=== PATIENT | female | born 1980 | race Caucasian/White ===

== ENCOUNTER 2020-01-20 17:07 | Emergency (ER) | payer BC, SELFPAY ==
[2020-01-20 17:13] VITALS: BP 124/62; PULSE 88; RESP 18; TEMP 36.3; O2SAT 97
[2020-01-20 18:08] LABS: Add Manual Diff / Slide Review NO; Basophils Absolute Auto 0 /uL (0-100); Basophils Percent Auto 0.8 % (0-2); Eosinophils Absolute Auto 100 /uL (0-450); Eosinophils Percent Auto 1.9 % (2-4); Hematocrit 38.9 % (36-46); Hemoglobin 13.2 g/dL (12.0-16.0); Lymphocytes Absolute Auto 1900 /uL (1100-4500); Lymphocytes Percent Auto 30.8 % (25-40); Mean Corpuscular HGB Conc 33.8 % (30-36); Mean Corpuscular Hemoglobin 28.4 PG (26-34); Mean Corpuscular Volume 83.9 fL (80-100); Monocytes Absolute Auto 400 /uL (0-900); Monocytes Percent Auto 6.7 % (3-14); Neutrophils Absolute Auto 3700 /uL (1500-7000); Neutrophils Percent Auto 59.8 % (50-75); Platelet Count 235 X10^3/uL (150-400); Red Blood Cell Count 4.64 X10^6/uL (4.0-5.2); Red Cell Distribution Width 13.5 % (11.6-14.8); White Blood Cell Count 6.2 X10^3/uL (4.5-11.0)
[2020-01-20 18:18] LABS: Alanine Aminotransferase 13 IU/L (<35); Albumin 4.2 g/dL (3.5-5.0); Albumin Globulin Ratio 1.6 (1.0-2.8); Alkaline Phosphatase 44 U/L (38-126); Aspartate Aminotransferase 20 IU/L (14-36); BUN Creatinine Ratio 21.8 (6-22); Bilirubin Total 0.2 mg/dL (0.2-1.3); Blood Urea Nitrogen 12 mg/dL (7-17); Calcium 8.7 mg/dL (8.4-10.2); Carbon Dioxide 28 mmol/L (22-32); Chloride 108 mmol/L (98-107); Estimated Glomerular Filt Rate > 60.0 mL/min (>60); Globulin 2.7 g/dL (1.7-4.1); Glucose 103 mg/dL (70-100); HEMOLYSIS < 15 (0-50); Potassium 4.6 mmol/L (3.4-5.1); Sodium 140 mmol/L (137-145); Total Protein 6.9 g/dL (6.3-8.2)
[2020-01-20 18:34] LABS: HCG Quantitative /Beta subunit 6.6 mIU/mL
[2020-01-20 19:08] LABS: Bacteria Urine None Seen
--- NOTE | 2020-01-20 19:29 | ED_ITS ---
HPI - Female Genitourinary <TAY Rodriguez - Last Filed: 01/20/20 20:16> General Chief complaint: Vaginal Bleeding Stated complaint: Thinks Miscarrige Time Seen by Provider: 01/20/20 17:21 Source: patient Mode of arrival: Ambulatory Limitations: no limitations History of Present Illness HPI Narrative: The patient is a 39-year-old female nonsmoker new to the area who presents with a chief complaint of bleeding she is having a miscarriage. She had her last menstrual period on non for had a 4 point positive test on 01/10. She complains of 6 days of increasing cramping and bleeding. She has progressed from very light pinkish discharge to menstrual like bleeding over the past few days. She denies any fevers nausea vomiting or diarrhea. She complains of menstrual like cramping. She has history of 2 healthy pregnancies. She is concerned that she is having a miscarriage today. She does note that she does not have anybody who is a primary care provider in the area she is new to the area. Review of Systems <TAY Rodriguez - Last Filed: 01/20/20 20:16> Review of Systems Narrative: GENERAL: Denies chills, fatigue, malaise, fever, sweats. HEENT: Denies sinus pain, ear pain, sore throat, difficulty swallowing, dizziness. RESPIRATORY: Denies dyspnea, cough, wheezing, hemoptysis, sputum. CARDIOVASCULAR: Denies chest pain, palpitations, orthopnea, edema, GASTROINTESTINAL: Denies nausea, vomiting, abdominal pain, diarrhea, cons tipation, melena. : See HPI MUSCULOSKELETAL: denies weakness, joint pain, or bony pain SKIN: Denies rash, skin lesions, or other NEUROLOGIC: Denies weakness, headache, numbness, change in speech, confusion, seizures, incoordination. PSYCHIATRIC: No concerning psychosocial issues. 12 point review of systems is negative except for those stated above Exam <TAY Rodriguez - Last Filed: 01/20/20 20:16> Narrative Exam Narrative: GENERAL: This is a well-nourished, well-developed patient, in no acute distress HEAD: Atraumatic. Normocephalic. No temporal or scalp tenderness. EYES: Pupils equal round and reactive. Extraocular motions intact. No scleral icterus. No injection or drainage. ENT: Nose without bleeding, purulent drainage or septal hematoma. Wearing a mask. Airway patent. NECK: Trachea midline. No JVD or lymphadenopathy. Supple, nontender, no meninge al signs. CARDIOVASCULAR: Regular rate and rhythm RESPIRATORY: Clear to auscultation. Breath sounds equal bilaterally. No wheezes, rales, or rhonchi. GASTROINTESTINAL: Abdomen soft, diffuse suprapubic tenderness to palpation, nondistended. No hepato-splenomegaly, or palpable masses. No guarding. Active bowel sounds all 4 quadrants EXTREMITIES: No clubbing, cyanosis, or edema. No joint tenderness, effusion, or edema noted. Using all extremities equally. BACK: Nontender without deformity or crepitance. No flank tenderness. NEURO: AOx3. SKIN: No rash or erythema on visible skin Initial Vital Signs Initial Vital Signs: Vital Signs Temperature 97.4 F L 01/20/20 17:13 Pulse Rate 88 01/20/20 17:13 Respiratory Rate 18 01/20/20 17:13 Blood Pressure 124/62 01/20/20 17:13 Pulse Oximetry 97 01/20/20 17:13 <Jose De Jesus George DO - Last Filed: 01/21/20 07:04> Initial Vital Signs Initial Vital Signs: Vital Signs Temperature 97.4 F L 01/20/20 17:13 Pulse Rate 88 01/20/20 17:13 Respiratory Rate 18 01/20/20 17:13 Blood Pressure 124/62 01/20/20 17:13 Pulse Oximetry 97 01/20/20 17:13 Scores <TAY Rodriguez - Last Filed: 01/20/20 20:16> GCS Katarina coma scale eye opening: Spontaneous Kat[place]ina coma scale verbal response: Orientated Kat[place]ina coma scale motor response: Obey commands [place] coma scale total score: 15 Course <TAY Rodriguez - Last Filed: 01/20/20 20:16> Orders Ordered: ED Orders 01/20/20 17:49 ABO RH Type Stat Complete Blood Count AUTO DIFF Stat Comprehensive Metabolic Panel Stat HCG Quantitative /Beta subunit Stat 01/20/20 19:07 Urine Microscopic Stat Vital Signs Vital signs: Vital Signs - 8 hr 01/20/20 17:13 Temperature 97.4 F L Pulse Rate 88 Respiratory Rate 18 Blood Pressure 124/62 Pulse Oximetry 97 <Jose De Jesus George DO - Last Filed: 01/21/20 07:04> Orders Ordered: ED Orders 01/20/20 17:49 ABO RH Type Stat Complete Blood Count AUTO DIFF Stat Comprehensive Metabolic Panel Stat HCG Quantitative /Beta subunit Stat 01/20/20 19:07 Urine Microscopic Stat Vital Signs Vital signs: Vital Signs - 8 hr 01/20/20 17:13 Temperature 97.4 F L Pulse Rate 88 Respiratory Rate 18 Blood Pressure 124/62 Pulse Oximetry 97 MDM - Female Genitourinary <MAGEN Rodriguez- - Last Filed: 01/20/20 20:16> Lab Data Attestation: I reviewed the patient's lab results. Result diagrams: 01/20/20 17:49 01/20/20 17:49 Labs: Lab Results 01/20/20 01/20/20 01/20/20 Range/Units 17:49 17:49 17:49 WBC 6.2 (4.5-11.0) X10^3/uL RBC 4.64 (4.0-5.2) X10^6/uL Hgb 13.2 (12.0-16.0) g/dL Hct 38.9 (36-46) % MCV 83.9 (80-100) fL MCH 28.4 (26-34) PG MCHC 33.8 (30-36) % RDW 13.5 (11.6-14.8) % Plt Count 235 (150-400) X10^3/uL Neut % (Auto) 59.8 (50-75) % Lymph % (Auto) 30.8 (25-40) % [place] % (Auto) 6.7 (3-14) % Eos % (Auto) 1.9 L (2-4) % Baso % (Auto) 0.8 (0-2) % Neut # (Auto) 3700 (3430-2946) /uL Lymph # (Auto) 1900 (1556-0119) /uL [place] # (Auto) 400 (0-900) /uL Eos # (Auto) 100 (0-450) /uL Baso # (Auto) 0 (0-100) /uL Sodium 140 (137-145) mmol/L Potassium 4.6 (3.4-5.1) mmol/L Chloride 108 H (98-107) mmol/L Carbon Dioxide 28 (22-32) mmol/L BUN 12 (7-17) mg/dL Creatinine 0.55 (0.52-1.04) mg/dL Estimated GFR > 60.0 (>60) mL/min BUN/Creatinine Ratio 21.8 (6-22) Glucose 103 H (70-100) mg/dL Calcium 8.7 (8.4-10.2) mg/dL Total Bilirubin 0.2 (0.2-1.3) mg/dL AST 20 (14-36) IU/L ALT 13 (<35) IU/L Alkaline Phosphatase 44 (38-126) U/L Total Protein 6.9 (6.3-8.2) g/dL Albumin 4.2 (3.5-5.0) g/dL Globulin 2.7 (1.7-4.1) g/dL Albumin/Globulin Ratio 1.6 (1.0-2.8) HCG, Quant 6.6 mIU/mL Urine RBC (0-5/HPF) Urine WBC (0-5/HPF) Ur Squamous Epith Cells (0-5/HPF) Urine Bacteria (None) Ur Culture Indicated? Blood Type A Positive 01/20/20 Range/Units 19:07 WBC (4.5-11.0) X10^3/uL RBC (4.0-5.2) X10^6/uL Hgb (12.0-16.0) g/dL Hct (36-46) % MCV (80-100) fL MCH (26-34) PG MCHC (30-36) % RDW (11.6-14.8) % Plt Count (150-400) X10^3/uL Neut % (Auto) (50-75) % Lymph % (Auto) (25-40) % [place] % (Auto) (3-14) % Eos % (Auto) (2-4) % Baso % (Auto) (0-2) % Neut # (Auto) (9578-9420) /uL Lymph # (Auto) (3632-0539) /uL [place] # (Auto) (0-900) /uL Eos # (Auto) (0-450) /uL Baso # (Auto) (0-100) /uL Sodium (137-145) mmol/L Potassium (3.4-5.1) mmol/L Chloride (98-107) mmol/L Carbon Dioxide (22-32) mmol/L BUN (7-17) mg/dL Creatinine (0.52-1.04) mg/dL Estimated GFR (>60) mL/min BUN/Creatinine Ratio (6-22) Glucose (70-100) mg/dL Calcium (8.4-10.2) mg/dL Total Bilirubin (0.2-1.3) mg/dL AST (14-36) IU/L ALT (<35) IU/L Alkaline Phosphatase (38-126) U/L Total Protein (6.3-8.2) g/dL Albumin (3.5-5.0) g/dL Globulin (1.7-4.1) g/dL Albumin/Globulin Ratio (1.0-2.8) HCG, Quant mIU/mL Urine RBC 0-1/hpf (0-5/HPF) Urine WBC 0-1/hpf (0-5/HPF) Ur Squamous Epith Cells 0-1 /hpf (0-5/HPF) Urine Bacteria None seen (None) Ur Culture Indicated? Cult not indicated Blood Type Point of Care Testing Test Results Positive Urine Dip Bedside Urine Glucose Negative Bedside Urine Bilirubin - Negative Bedside Urine Ketone - Negative Urine Specific [place] 1.020 Bedside Urine Occult Blood ++ Bedside Urine pH 6.5 Bedside Urine Protein - Negative Bedside Urine Urobilinogen - Negative Bedside Urine Nitrite - Negative Bedside Urine Leukocytes - Negative Esterase MDM Narrative Medical decision making narrative: The patient is a 39-year-old female who presents with a chief complaint of believing she is having a miscarriage. Her urine test is slightly positive, but her beta hCG is 6.6. Thus it is very unlikely that ultrasound illustrate anything. She is in no acute distress, but does not have anybody to follow up with. I spoke with Dr. Lay, on-call OBGYN who was kind enough to follow up with the patient. I discussed at length with the patient the importance of follow-up. Discussed at length coming back to ER for acute concerns such as bleeding through a pad an hour. Patient has no questions or concerns upon discharge and states understanding return precautions as well as follow-up care. <Jose De Jesus George DO - Last Filed: 01/21/20 07:04> Lab Data Labs: Lab Results 01/20/20 01/20/20 01/20/20 Range/Units 17:49 17:49 17:49 WBC 6.2 (4.5-11.0) X10^3/uL RBC 4.64 (4.0-5.2) X10^6/uL Hgb 13.2 (12.0-16.0) g/dL Hct 38.9 (36-46) % MCV 83.9 (80-100) fL MCH 28.4 (26-34) PG MCHC 33.8 (30-36) % RDW 13.5 (11.6-14.8) % Plt Count 235 (150-400) X10^3/uL Neut % (Auto) 59.8 (50-75) % Lymph % (Auto) 30.8 (25-40) % [place] % (Auto) 6.7 (3-14) % Eos % (Auto) 1.9 L (2-4) % Baso % (Auto) 0.8 (0-2) % Neut # (Auto) 3700 (4497-0862) /uL Lymph # (Auto) 1900 (6457-4189) /uL [place] # (Auto) 400 (0-900) /uL Eos # (Auto) 100 (0-450) /uL Baso # (Auto) 0 (0-100) /uL Sodium 140 (137-145) mmol/L Potassium 4.6 (3.4-5.1) mmol/L Chloride 108 H (98-107) mmol/L Carbon Dioxide 28 (22-32) mmol/L BUN 12 (7-17) mg/dL Creatinine 0.55 (0.52-1.04) mg/dL Estimated GFR > 60.0 (>60) mL/min BUN/Creatinine Ratio 21.8 (6-22) Glucose 103 H (70-100) mg/dL Calcium 8.7 (8.4-10.2) mg/dL Total Bilirubin 0.2 (0.2-1.3) mg/dL AST 20 (14-36) IU/L ALT 13 (<35) IU/L Alkaline Phosphatase 44 (38-126) U/L Total Protein 6.9 (6.3-8.2) g/dL Albumin 4.2 (3.5-5.0) g/dL Globulin 2.7 (1.7-4.1) g/dL Albumin/Globulin Ratio 1.6 (1.0-2.8) HCG, Quant 6.6 mIU/mL Urine RBC (0-5/HPF) Urine WBC (0-5/HPF) Ur Squamous Epith Cells (0-5/HPF) Urine Bacteria (None) Ur Culture Indicated? Blood Type A Positive 01/20/20 Range/Units 19:07 WBC (4.5-11.0) X10^3/uL RBC (4.0-5.2) X10^6/uL Hgb (12.0-16.0) g/dL Hct (36-46) % MCV (80-100) fL MCH (26-34) PG MCHC (30-36) % RDW (11.6-14.8) % Plt Count (150-400) X10^3/uL Neut % (Auto) (50-75) % Lymph % (Auto) (25-40) % [place] % (Auto) (3-14) % Eos % (Auto) (2-4) % Baso % (Auto) (0-2) % Neut # (Auto) (5469-9373) /uL Lymph # (Auto) (7588-5431) /uL [place] # (Auto) (0-900) /uL Eos # (Auto) (0-450) /uL Baso # (Auto) (0-100) /uL Sodium (137-145) mmol/L Potassium (3.4-5.1) mmol/L Chloride (98-107) mmol/L Carbon Dioxide (22-32) mmol/L BUN (7-17) mg/dL Creatinine (0.52-1.04) mg/dL Estimated GFR (>60) mL/min BUN/Creatinine Ratio (6-22) Glucose (70-100) mg/dL Calcium (8.4-10.2) mg/dL Total Bilirubin (0.2-1.3) mg/dL AST (14-36) IU/L ALT (<35) IU/L Alkaline Phosphatase (38-126) U/L Total Protein (6.3-8.2) g/dL Albumin (3.5-5.0) g/dL Globulin (1.7-4.1) g/dL Albumin/Globulin Ratio (1.0-2.8) HCG, Quant mIU/mL Urine RBC 0-1/hpf (0-5/HPF) Urine WBC 0-1/hpf (0-5/HPF) Ur Squamous Epith Cells 0-1 /hpf (0-5/HPF) Urine Bacteria None seen (None) Ur Culture Indicated? Cult not indicated Blood Type Point of Care Testing Test Results Positive Urine Dip Bedside Urine Glucose Negative Bedside Urine Bilirubin - Negative Bedside Urine Ketone - Negative Urine Specific [place] 1.020 Bedside Urine Occult Blood ++ Bedside Urine pH 6.5 Bedside Urine Protein - Negative Bedside Urine Urobilinogen - Negative Bedside Urine Nitrite - Negative Bedside Urine Leukocytes - Negative Esterase Discharge Plan Departure Patient Disposition: Home Clinical Impression: Miscarriage, threatened, early Discharge Date/Time: 01/20/20 20:31 Instructions: Threatened Miscarriage Activity Restrictions/Additional Instructions: Thank you for trusting us with your care today. As discussed, your hormone is very low. This information combined with your vaginal bleeding is very concerning for miscarriage. Dr. Lay's office should reach out to tomorrow to help arrange follow-up. I have included her contact information below. As discussed, please come back to the ER for any acute concerns such as bleeding through more than 1 pad per hour. Please come back to the emergency department for any acute concerns Referrals: Alicja Lay MD [Physician] - <Jose De Jesus George DO - Last Filed: 01/21/20 07:04> Cosign ED Attending Cosignature Attestation: Dr George Co-Sign Statement: I was available for consultation during this patient's emergency department visit. This chart is signed by myself for administrative purposes only. I did not have direct contact with this patient during this visit. They were seen indep endently by the APC.
[2020-01-20 19:42] LABS: Culture Indicated Urine Cult Not Indicated; RBC Urine 0-1/HPF (0-5/HPF); Squamous Epithelial Cell Urine 0-1 /HPF (0-5/HPF); WBC Urine 0-1/HPF (0-5/HPF)
[2020-01-20 20:29] VITALS: BP 118/66; PULSE 79; RESP 17; O2SAT 99
== END 2020-01-20 20:31 | disposition home or self-care (01) ==
PROVIDERS: Emergency Provider Nurse Practitioner Family
DX: O20.0 Threatened abortion (principal)
CPT/HCPCS: 36415; 80053; 81003; 81015; 81025; 84702; 85025; 86900; 86901; 99282; 99283

== ENCOUNTER → 2020-03-04 07:15 | Outpatient (CLI) | payer BC, SELFPAY ==
[2020-03-04 08:32] LABS: HCG Quantitative /Beta subunit 13742 mIU/mL
== END ==
PROVIDERS: Referring Provider Obstetrics & Gynecology; Visit Provider Obstetrics & Gynecology
DX: N91.2 Amenorrhea, unspecified (principal); Z87.59 Personal history of other complications of pregnancy, childbirth and the puerperium
CPT/HCPCS: 36415; 84702

== ENCOUNTER → 2020-03-06 07:13 | Outpatient (CLI) | payer BC, SELFPAY ==
[2020-03-06 09:37] LABS: HCG Quantitative /Beta subunit 18509 mIU/mL
== END ==
PROVIDERS: Referring Provider Obstetrics & Gynecology; Visit Provider Obstetrics & Gynecology
DX: Z32.01 Encounter for pregnancy test, result positive (principal)
CPT/HCPCS: 36415; 84702

== ENCOUNTER → 2020-03-24 11:27 | Outpatient (CLI) | payer BC, SELFPAY ==
[2020-03-24 16:15] LABS: Urine Chlamydia NOT DETECTED; Urine N gonorrhoeae NOT DETECTED
== END ==
PROVIDERS: Visit Provider Obstetrics & Gynecology
DX: Z34.81 Encounter for supervision of other normal pregnancy, first trimester (principal)
CPT/HCPCS: 87491; 87591

== ENCOUNTER → 2020-04-21 14:26 | Outpatient (CLI) | payer BC, SELFPAY ==
[2020-04-21 15:36] LABS: Add Manual Diff / Slide Review NO; Basophils Absolute Auto 0 /uL (0-100); Basophils Percent Auto 0.3 % (0-2); Eosinophils Absolute Auto 100 /uL (0-450); Eosinophils Percent Auto 1.1 % (2-4); Hematocrit 41.9 % (36-46); Hemoglobin 14.1 g/dL (12.0-16.0); Lymphocytes Absolute Auto 1400 /uL (1100-4500); Lymphocytes Percent Auto 19.9 % (25-40); Mean Corpuscular HGB Conc 33.6 % (30-36); Mean Corpuscular Hemoglobin 28.1 PG (26-34); Mean Corpuscular Volume 83.5 fL (80-100); Monocytes Absolute Auto 400 /uL (0-900); Monocytes Percent Auto 5.1 % (3-14); Neutrophils Absolute Auto 5200 /uL (1500-7000); Neutrophils Percent Auto 73.6 % (50-75); Platelet Count 224 X10^3/uL (150-400); Red Blood Cell Count 5.02 X10^6/uL (4.0-5.2); Red Cell Distribution Width 13.6 % (11.6-14.8); White Blood Cell Count 7.1 X10^3/uL (4.5-11.0)
[2020-04-21 15:44] LABS: Appearance Urine UA CLEAR; Bilirubin Urine UA NEGATIVE (NEGATIVE); Color Urine UA YELLOW; Glucose Urine UA NEGATIVE (Negative); Ketones Urine UA NEGATIVE (NEGATIVE); Leukocyte Esterase Urine UA NEGATIVE (NEGATIVE); Nitrite Urine UA NEGATIVE (Negative); Occult Blood Urine UA NEGATIVE (Negative); Protein Urine UA NEGATIVE (Negative); Specific Gravity Urine UA >=1.030 (1.000-1.035); Urobilinogen Urine UA 0.2 E.U./dL (0.2)
[2020-04-22 06:35] LABS: Varicella IgG Antibody 860 index (Immune >165)
[2020-04-22 10:07] LABS: RPR Screen Non Reactive (Non Reactive)
[2020-04-23 18:24] LABS: Hepatitis B Surface Antigen NEGATIVE s/c (NEGATIVE)
[2020-04-23 18:40] LABS: HIV 1 & 2 Ab/Ag 4th Gen Combo NEGATIVE (NEGATIVE); Hep C Virus Ab w/Reflex Quant NEGATIVE s/c (NEGATIVE)
== END ==
PROVIDERS: Referring Provider Obstetrics & Gynecology; Visit Provider Obstetrics & Gynecology
DX: O09.511 Supervision of elderly primigravida, first trimester (principal)
CPT/HCPCS: 36415; 80055; 81003; 81420; 86787; 86803; 86850; 86900; 86901; 87086; 87389

== ENCOUNTER → 2020-05-19 09:18 | Outpatient (CLI) | payer BC, SELFPAY ==
[2020-05-21 18:38] LABS: Gest Age on Col Date 16.3 weeks (.); Gestational Age Ultrasound (.); Insulin Dep Diabetes No (.); OSBR Risk 1IN 10000 (.); Results Report (.); Test Results *Screen Negative* (.)
== END ==
PROVIDERS: Referring Provider Obstetrics & Gynecology; Visit Provider Obstetrics & Gynecology
DX: Z34.82 Encounter for supervision of other normal pregnancy, second trimester (principal); Z3A.16 16 weeks gestation of pregnancy
CPT/HCPCS: 36415; 82105

== ENCOUNTER → 2020-06-16 14:25 | Outpatient (CLI) | payer BC, SELFPAY ==
--- NOTE | 2020-06-16 14:26 | DI.US.S_ITS ---
PROCEDURE: US OB >= 14 WEEKS FETUS INDICATIONS: ANATOMY OUTSIDE/PRIOR DATING DATA: Last menstrual period (LMP): 01/18/2020. LMP-based estimated date of delivery (CECILY): 10/24/2020 . First dating scan (date and location): 03/10/2020 . Estimated date of delivery (CECILY) from first dating scan: 11/02/2020 TECHNIQUE: Real-time scanning was performed of the fetus, with image documentation and biometric measurements. Endovaginal scanning: No COMPARISON: [facility], , OB >= 14 WEEKS FETUS, 04/21/2020, 13:53. FINDINGS: General: A single living intrauterine gestation is present. Presentation: Breech. Placenta: Placental position is anterior , without previa. Amniotic fluid index: 12.1 cm, normal range is 5-24 cm. heart rate: 147 beats per minute. Maternal cervical canal: 5.0 cm long. Normal lower limit is 2.5 cm. biometrics: Biparietal diameter: 20 weeks 3 days Head circumference: 20 weeks 1 day Abdominal circumference: 20 weeks Femur length: 20 weeks Estimated gestational age from initial scan: 20 weeks 1 day Composite gestational age from present scan: 20 weeks 3 days Estimated weight and percentile: 354 g; 63rd percentile Measurement variability for biometric dating: +/- 7 days from 14 weeks to 15 weeks 6 days gestation, +/- 10 days from 16 weeks to 21 weeks 6 days gestation, +/- 2 weeks from 22 weeks to 27 weeks 6 days gestation, +/- 3 weeks for 28 weeks gestation or later. weight reference: 4500 g or EFW >90/95% is considered macrosomia or large for gestational age. EFW <10% is small for gestational age. EFW 5% or less is considered intra-uterine growth restriction. Anatomic survey: Neuro: Ventricles are non-dilated at less than 10 mm. Cisterna magna is normal at 3-11 mm. Cerebellum is normal in size and morphology. Nuchal skin fold: Normal at less than 6 mm between 14-21 weeks gestational age. Face: Nose and lips, facial profile are normal. Spine: No evidence for spina bifida. Heart: 4-chambered heart is present, with normal ventricular outflow tracts. Diaphragm: Diaphragm is intact. Stomach: Left-sided stomach is present. Kidneys: No hydronephrosis. Normal is less than 5 mm in 2nd trimester, less than 7 mm in 3rd trimester. Cord: 3-vessel cord has orthotopic insertion. Bladder: Normal in size. Extremities: All 4 extremities identified. IMPRESSION: 1. Normal interval growth. 2. Normal anatomic survey. Dictated by: Alvaro Sexton [facility] Interpreted: Jose Mckeon MD on 06/16/2020 at 16:53 Approved by: Jose Mckeon M.D. on 06/16/2020 at 17:07
== END ==
PROVIDERS: Referring Provider Obstetrics & Gynecology; Visit Provider Obstetrics & Gynecology
DX: Z34.82 Encounter for supervision of other normal pregnancy, second trimester (principal); Z3A.20 20 weeks gestation of pregnancy
CPT/HCPCS: 76811

== ENCOUNTER → 2020-07-14 15:28 | Outpatient (CLI) | payer BC, SELFPAY ==
[2020-07-14 17:54] LABS: Hematocrit 36.9 % (36-46); Hemoglobin 12.4 g/dL (12.0-16.0)
[2020-07-14 17:58] LABS: GTT (PREG) 1 Hour PP 50gm Dose 158 mg/dL (76-139)
== END ==
PROVIDERS: Referring Provider Obstetrics & Gynecology; Visit Provider Obstetrics & Gynecology
DX: Z34.82 Encounter for supervision of other normal pregnancy, second trimester (principal); Z3A.26 26 weeks gestation of pregnancy
CPT/HCPCS: 36415; 82950; 85014; 85018

== ENCOUNTER → 2020-07-17 07:12 | Outpatient (CLI) | payer BC, SELFPAY ==
[2020-07-17 09:50] LABS: Glucose Fasting Gestational 83 mg/dL (76-95)
[2020-07-17 09:55] LABS: Glucose 1 Hour Gest 181 mg/dL (76-180)
[2020-07-17 10:46] LABS: Glucose Tol Interp,Gestational INTERPRETATION
[2020-07-17 11:51] LABS: Glucose 2 Hour Gest 151 mg/dL (76-155)
[2020-07-17 11:53] LABS: Glucose 3 Hour Gest 102 mg/dL (76-140)
== END ==
PROVIDERS: Referring Provider Obstetrics & Gynecology; Visit Provider Obstetrics & Gynecology
DX: R73.09 Other abnormal glucose (principal)
CPT/HCPCS: 36415; 82951; 82952

== ENCOUNTER → 2020-10-08 09:49 | Outpatient (CLI) | payer BC, SELFPAY ==
[2020-10-09 16:45] LABS: Strep Grp B PCR NEG for Grp B Strep
== END ==
PROVIDERS: Referring Provider Obstetrics & Gynecology; Visit Provider Obstetrics & Gynecology
DX: Z34.83 Encounter for supervision of other normal pregnancy, third trimester (principal); Z3A.36 36 weeks gestation of pregnancy
CPT/HCPCS: 87653

== ENCOUNTER → 2020-10-23 13:28 | Outpatient (CLI) | payer BC, SELFPAY ==
[2020-10-23 15:00] LABS: COVID19 -Nasal RAPID Negative (Negative)
== END ==
PROVIDERS: Visit Provider Obstetrics & Gynecology
DX: Z01.812 Encounter for preprocedural laboratory examination (principal); Z20.822 Contact with and (suspected) exposure to COVID-19
CPT/HCPCS: 87635

== ENCOUNTER 2020-10-26 07:10 | Inpatient (IN) | payer BC, SELFPAY ==
[2020-10-26] MEDS: LACTATED RINGERS 1,000 ML 100 ML IV ×3 (08:01→13:10)
[2020-10-26] MEDS: OXYTOCIN PREMIX 30 UNIT/500 ML PLAST..BAG IV (08:08)
[2020-10-26 08:14] LABS: Add Manual Diff / Slide Review NO; Basophils Absolute Auto 0 /uL (0-100); Basophils Percent Auto 0.4 % (0-2); Eosinophils Absolute Auto 100 /uL (0-450); Eosinophils Percent Auto 0.8 % (2-4); Hematocrit 38.4 % (36-46); Hemoglobin 12.8 g/dL (12.0-16.0); Lymphocytes Absolute Auto 1300 /uL (1100-4500); Lymphocytes Percent Auto 16.1 % (25-40); Mean Corpuscular HGB Conc 33.4 % (30-36); Mean Corpuscular Hemoglobin 26.9 PG (26-34); Mean Corpuscular Volume 80.6 fL (80-100); Monocytes Absolute Auto 400 /uL (0-900); Monocytes Percent Auto 5.3 % (3-14); Neutrophils Absolute Auto 6300 /uL (1500-7000); Neutrophils Percent Auto 77.4 % (50-75); Platelet Count 180 X10^3/uL (150-400); Red Blood Cell Count 4.77 X10^6/uL (4.0-5.2); Red Cell Distribution Width 14.9 % (11.6-14.8); White Blood Cell Count 8.1 X10^3/uL (4.5-11.0)
[2020-10-26] MEDS: FENT 2MCG/ML BUPIV 0.125% EPI 200 MCG/100 ML PLAST..BAG 12 MCG EPIDURAL (10:30)
[2020-10-26] MEDS: ePHEDrine 50 MG/ML VIAL 15 MG IV (11:11)
--- NOTE | 2020-10-26 11:18 | PM.AN.REGBLK ---
Regional Block Pre-procedure Procedure: Continuous Lumbar Epidural for L&D Attending OB provider: Alicja Lay PMH/ROS narrative: , h/o pre-E, none this . Hx: No personal or family history of anesthesia problems. PSH/Anesthesia history narrative: previous epidural without issue Exam narrative: MP1, RRR, CTAB ASA Class: II Labs: Hct 38.4 % (36-46) 10/26/20 08:00 Plt Count 180 X10^3/uL (150-400) 10/26/20 08:00 Medications: Current Medications Generic Name Dose Route Start Last Admin Trade Name Freq PRN Reason Stop Dose Admin Calcium Carbonate 1,000 mg 10/26/20 07:19 Calcium Carbonate 500 Mg Tab PO Q2HR PRN Dyspepsia Carboprost Tromethamine 250 mcg 10/26/20 07:19 Carboprost 250 Mcg/Ml Ampul IM Q90M PRN Bleeding Ephedrine Sulfate 15 mg 10/26/20 11:08 10/26/20 11:11 Ephedrine 50 Mg/Ml Vial IV 15 mg NOW PRN Administration Hypotension Fentanyl 50 mcg 10/26/20 07:19 Fentanyl 100 Mcg/2 Ml Inj IV Q1H PRN Pain, Moderate (4-6) Oxytocin/Lactated Ringer's 30 unit in 500 mls @ 200 mls/hr 10/26/20 07:19 Oxytocin Premix IV CONT PRN Bleeding Protocol Oxytocin/Lactated Ringer's 30 unit in 500 mls @ 3 mls/hr 10/26/20 07:30 10/26/20 08:08 Oxytocin Premix IV 3 milliunit/min TITRATE JANAK 3 mls/hr Administration Protocol 3 MILLIUNIT/MIN Lactated Ringer's 1,000 mls @ 100 mls/hr 10/26/20 07:30 10/26/20 10:06 Lactated Ringers IV 100 mls/hr CONT JANAK Administration Tranexamic Acid 1,000 mg/ 100 mls @ 200 mls/hr 10/26/20 07:19 Sodium Chloride IV NOW PRN Bleeding Lactated Ringer's 1,000 mls @ 100 mls/hr 10/26/20 09:00 Lactated Ringers IV CONT JANAK FENT 2MCG/ML BUPIV 0.125% EPI 200 mcg in 100 mls @ 12 mls/hr 10/26/20 09:00 Fentanyl/Bupiv/Ns 2mcg/Ml - 0.125% EPIDURAL CONT JANAK Methylergonovine Maleate 0.2 mg 10/26/20 07:19 Methylergonovine 0.2 Mg Tablet PO Q6HR PRN Heavy Bleeding Methylergonovine Maleate 0.2 mg 10/26/20 07:19 Methylergonovine 0.2 Mg/Ml Vial IM NOW PRN Bleeding Metoclopramide HCl 10 mg 10/26/20 07:19 Metoclopramide 10 Mg/2 Ml Inj IV NOW PRN Nausea And Vomiting Misoprostol 1,000 mcg 10/26/20 07:19 Misoprostol 200 Mcg Tablet GA NOW PRN Bleeding Misoprostol 800 mcg 10/26/20 07:19 Misoprostol 200 Mcg Tablet GA NOW PRN Bleeding Misoprostol 400 mcg 10/26/20 07:19 Misoprostol 200 Mcg Tablet SL NOW PRN Bleeding Naloxone HCl 0.2 mg 10/26/20 07:19 Naloxone 0.4 Mg/Ml Vial IV Q2MIN PRN Opiate Reversal Ondansetron HCl 4 mg 10/26/20 07:19 Ondansetron 4 Mg/2 Ml Inj IV Q4HR PRN Nausea And Vomiting Oxytocin 10 unit 10/26/20 07:19 Oxytocin 10 Unit/Ml Vial IM NOW PRN Bleeding Allergies: Allergies Allergy/AdvReac Type Severity Reaction Status Date / Time banana Allergy Intermediate Nausea and Verified 10/23/20 14:24 Flu-like symptoms pine nut AdvReac Intermediate Mouth sores Verified 10/23/20 14:24 pineapple AdvReac Intermediate Mouth sores Verified 10/23/20 14:24 tomato AdvReac Intermediate Mouth sores Verified 10/23/20 14:24 walnut AdvReac Intermediate Mouth sores Verified 10/23/20 14:24 Procedure Insertion date: 10/26/20 Insertion time: 10:21 Prep/Local: betadine x3 (chloroprep) and 1% lidocaine Interspace: L3-4 Patient position: sitting Needle: 18 gauge Hustead Loss of resistance with: saline RUCHI at (cm): 7 Catheter placed at SKIN (cm): 12 Catheter in SPACE (cm): 5 Insertion: Yes CSF Initial Medications TEST DOSE time: 10:22 TEST DOSE: 1.5% lidocaine with epinephrine 1:200k (mL): 5 BOLUS DOSE time: 10:23 BOLUS DOSE (mL): 2 BOLUS DOSE med: other (10mcg fentanyl intrathecally, 90mcg fentanyl via epidural catheter) Infusion INFUSION: 0.0625% bupivacaine and with fentanyl 2 mcg/mL Initial rate (mL/hr): 12 Subsequent interventions: Somewhat challenging placement - (+) scoliosis. First RUCHI 7cm, but no CSF on dural puncture, (+) felt more to the left per patient; redirected to right, RUCHI 7cm, (+)CSF with dural puncture after rotating needle 90deg to left. Catheter with slight resistance to threading. Reassessed RUCHI = (+). Slightly increased depth. Catheter threaded. (+) some resistance to injection. Discussed with patient that possibility of a one-sided block with low threshold for 1: pulling back 2cm, or 2: replacement. Patient understands. Toes tingling. Catheter secured. 1040: called to bedside to redress as (+)heme made tegaderm not stick well. RN had cleaned site. Catheter still at 12cm. Redressed. 1109: called for orders for hypotension - ephedrine written for 5-10mg up to 15mg IV. 1310: epidural pump alarming for occlusion intermittently. Patient comfortable. RLE more numb than left. Decreased infusion to 10mL/hr to decrease flow rate and hopefully cause less occlusion alarms. 1420: epidural pump continuing to alarm for occlusion with intermittent flow. Patient has become more uncomfortable and tried a patient bolus, but that flow was far too restricted and the pump stopped. bolus attempted with HIGH resistance. Catheter pulled out to 9cm at the skin. Bolus attempted and achieved, still with resistance. 10mL 0.25% bupivicaine. Will reassess in 10 minutes and decided if replacement necessary for patient comfort. 1430: pain not improved, pump still occluded alarm. Epidural catheter pulled, tip in tact. Patient positioned sitting, chloroprep prepped, draped, timeout performed. Lidocaine 1% anesthetized the skin at L2-3. RUCHI at 6.5cm, (+)CSF with needle through needle dural puncture. 10mcg fentanyl given intrathecally. Catheter threaded easily. 12cm, 5.5cm in space. Test dose negative (3mL), bolused with 90mcg fentanyl and 2mL test dose. Catheter secured with tegaderm and tape. Pump restarted at 10mL/hr. No acute complications. Post-procedure Anesthesia time START: 10:02 Anesthesia time END: 16:06 Post-procedure Anesthesia Assessment: Yes CV function: HR/BP stable, Yes Resp function: RR/sat/airway adequate, Yes Post-op hydration adequate, Yes Pain control adequate, Yes Nausea & vomiting absent, Yes Mental status appropriate and No Anesthesia complications
[2020-10-26 12:25] VITALS: BP 124/75
[2020-10-26 18:05] VITALS: TEMP 36.6
[2020-10-26] MEDS: IBUPROFEN 600 MG TABLET PO ×2 (18:05→23:55)
--- NOTE | 2020-10-26 18:54 | P.HPOB_ITS ---
OB HPI Date/Time Date of admission: 10/26/20 Date Patient Seen: 10/26/20 Time Patient Seen: 07:40 History of Present Condition Chief complaint: OBSERVATION : 4 Para: 2 Estimated Date of Delivery: 11/01/20 Estimated Gestational Age (weeks): 39+1 Narrative: Pippa Rose is a 40 year old female 4 para 2 at 39- ,1/7 weeks gestation for induction of labor due to advanced maternal age and history of rapid labors. Indications Indication for induction OB: other (Advanced maternal age, history of rapid labors) History of Present care: good care, initiated at week # (8), number of visits (11) and pounds weight gain (25) Dating criteria: LMP confirmed by 1st trimester US Ultrasounds: normal 1st trimester US and normal mid trimester US Obstetrical complications: none Medical complications: none Preadmission Labs Blood type: A (+) positive -: Antibody screen: negative, GBS status: negative, HBsAG: negative, HIV: negative and RPR/VDLR: negative -: Chlamydia screen: not detected and Gonorrhea screen: not detected -: Rubella: immune and Varicella: immune HCT: 38.4 HCAB: negative PAP: Normal (2019) Cell-free DNA: Normal, female AFP normal Urine: Negative 1 hr GTT: 158 3 hr GTT: 1 hr (181), 2 hr (151) and 3 hr (102) Fasting blood glucose: 83 Prior (ies) History: 2 1 SAB Evaluation Evaluation Baseline heart rate: 135 Variability: Moderate (11-25) monitor accelerations: Present Monitor Decelerations: Absent Status: Category l Cervical dilation (cm): 4 Cervical effacement (%): 80 station: -1 Laboratory results: Laboratory Tests 10/26/20 10/26/20 08:00 08:00 WBC 8.1 RBC 4.77 Hgb 12.8 Hct 38.4 MCV 80.6 MCH 26.9 MCHC 33.4 RDW 14.9 H Plt Count 180 Neut % (Auto) 77.4 H Lymph % (Auto) 16.1 L [place] % (Auto) 5.3 Eos % (Auto) 0.8 L Baso % (Auto) 0.4 Neut # (Auto) 6300 Lymph # (Auto) 1300 [place] # (Auto) 400 Eos # (Auto) 100 Baso # (Auto) 0 Blood Type A Positive Antibody Screen Negative [facility] Medical History (Updated 03/30/20 @ 05:18 by Alicja Lay MD) Abnormal Pap smear of cervix (~05/2016) ADHD AMA (advanced maternal age) multigravida 35+ Chicken pox Closed fracture of coccyx Dense breast tissue Depression HPV (human papilloma virus) anogenital infection (~2017) Pneumonia Preeclampsia (~2017) Seasonal allergies (~2016) (spontaneous vaginal delivery) (spontaneous vaginal delivery) UTI (urinary tract infection) Surgical History (Updated 03/17/20 @ 10:55 by Cassie Badillo RN) Anesthesia [place] teeth extracted Family History (Updated 03/17/20 @ 10:27 by Cassie Badillo, CASANDRA) Father Hyperlipidemia Mother Hyperlipidemia Afib Grandfather Diabetes mellitus Grandmother Cancer Grandfather Smoker Grandmother Hypertension Family/Other Aortic valve defect Family/Other CVA (cerebral vascular accident) Brother Cardiac abnormality Brother Overweight Social History marital status: number of children: 2 household members: spouse and children lives independently: Yes pets and animals: No education level: college (BA from [employer]. : working towards her MA in [employer]) occupational status: unemployed current occupational exposures/hazards: No shana/jainism: Religion special shana needs: No Smoking Status: Never smoker second hand exposure: No alcohol intake: former (pre- : occasional and very little at a time) substance use type: does not use Meds Home Medications and Allergies Home Medications Medication Instructions Recorded Confirmed Type aspirin 81 mg tablet,delayed 81 mg PO DAILY 03/10/20 10/26/20 History release hydrocortisone 2.5 % topical cream 1 applic [place] BID-QID PRN #30 g 08/11/20 10/26/20 Rx with perineal applicator (Anusol-HC) vitamins no.42-folic acid 1 tab PO DAILY #90 tab 08/11/20 10/26/20 Rx 1.4 mg chew tablet,IR - DR,biphase Allergies Allergy/AdvReac Type Severity Reaction Status Date / Time banana Allergy Intermediate Nausea and Verified 10/23/20 14:24 Flu-like symptoms pine nut AdvReac Intermediate Mouth sores Verified 10/23/20 14:24 pineapple AdvReac Intermediate Mouth sores Verified 10/23/20 14:24 tomato AdvReac Intermediate Mouth sores Verified 10/23/20 14:24 walnut AdvReac Intermediate Mouth sores Verified 10/23/20 14:24 Exam Vital Signs (past 8 hours): - 10/26/20 12:25 10/26/20 18:05 Temperature 97.8 F Blood Pressure 124/75 Narrative Exam Narrative: Generally: Patient is sitting up in bed, no acute distress Lungs: Clear to auscultation bilaterally Cardiovascular: Regular rate and rhythm Fundal height: 39 cm Estimated weight: 7-1/2 lb Extremities: Trace edema, 1+ DTRs Objective Labs Result Diagrams: 10/26/20 08:00 Labs: Laboratory Results - last 24 hr 10/26/20 10/26/20 08:00 08:00 WBC 8.1 RBC 4.77 Hgb 12.8 Hct 38.4 MCV 80.6 MCH 26.9 MCHC 33.4 RDW 14.9 H Plt Count 180 Neut % (Auto) 77.4 H Lymph % (Auto) 16.1 L [place] % (Auto) 5.3 Eos % (Auto) 0.8 L Baso % (Auto) 0.4 Neut # (Auto) 6300 Lymph # (Auto) 1300 [place] # (Auto) 400 Eos # (Auto) 100 Baso # (Auto) 0 Blood Type A Positive Antibody Screen Negative Assessment and Plan Assessment and Plan Assessment and Plan narrative: Assessment: 40-year-old 4 para 2 at 39-,1/7 weeks gestation for Pitocin induction of labor Plan: Pitocin per protocol 2 Epidural as necessary Artificial rupture membranes when able Expected management to spontaneous vaginal delivery Time Spent with Patient Total time spent with greater than 50% in coordination of care (as documented) at patient's floor/unit and/or counseling patient:: 15-24 minutes
--- NOTE | 2020-10-26 19:00 | PM.OBPNLAB ---
Date/Time Date Patient Seen: 10/26/20 Time Patient Seen: 12:48 Pain Control Pain control: epidural Pelvic Exam Dilation (cm): 4 Effacement (%): 80 station: -1 Amniotic membrane status: Intact Contractions Monitor mode: External Pitocin rate (mU/min): 3 Contraction frequency (min): 3 Contraction duration (min): 1 Contraction pattern: Regular Contraction intensity: Strong/Firm Status status: Category l Heart Rate Baseline: 135 Monitor Accelerations: Present Monitor Decelerations: Absent Monitor Variability: Moderate Assessment and Plan Assessment: active labor and induction ongoing Plan: other (Artificial rupture of membranes with moderate meconium-stained amniotic fluid)
--- NOTE | 2020-10-26 19:03 | P.PCNOB_ITS ---
Events: Labor Induction Labor & Delivery Delivery date: 10/26/20 Intrapartal Events: Anesthetic Complications (decreased BP, epidural had to be redone) Cervical ripening method: none Induction method: per pitocin protocol Delivery augmentation: rupture of membranes Delivery monitor: external FHT and external uterine Route of delivery: Episiotomy description: None L&D Laceration Description: None Estimated blood loss (mL): 50 Anesthesia Type: Epidural Complications: None Narrative: Female infant born unassisted in the CHUCK presentation over an intact perineum at 4:06 p.m.. The infant was in mom's arms when MD arrived in the room. After the cord stopped pulsing, the cord was double clamped and cut. Pitocin was given in the IV fluids. The placenta delivered intact with a three- vessel cord at 4:16 p.m.. The fundus was massaged to firm. The perineum was examined and there were no lacerations. Estimated blood loss 50 cc. Apgars 8 at 1 minute and 9 at 5 minutes. Epidural analgesia. Mom and stable to recovery. Baby 1: Infant gender: Female Presentation: vertex Position: Right Occiput Anterior Placenta delivery description: Spontaneous Cord Vessel Description: 3 Vessels, Loose and Around Body x1 score (1 min): 8 score (5 min): 9 weight: 7 lb 9 oz Plan for aftercare: Routine care
[2020-10-26] MEDS: LANOLIN OINT 7 GM 1 APPLIC TOP (23:55)
[2020-10-27] MEDS: ACETAMINOPHEN 325 MG TABLET 650 MG PO ×2 (02:35→10:09)
[2020-10-27] MEDS: IBUPROFEN 600 MG TABLET PO ×2 (05:56→13:51)
[2020-10-27 06:50] LABS: Hematocrit 36.4 % (36-46); Hemoglobin 11.8 g/dL (12.0-16.0)
[2020-10-27] MEDS: DOCUSATE 100 MG CAPSULE PO (10:09)
[2020-10-27] MEDS: PRENATAL VIT,CALC/IRON/FOLIC 1 TABLET 1 TAB PO (10:09)
[2020-10-27 11:50] VITALS: BP 124/77; PULSE 88; RESP 16; TEMP 36.4
[2020-10-27 13:51] VITALS: TEMP 36.4
--- NOTE | 2020-10-27 18:28 | PM.OBDS.1 ---
Discharge Providers Provider Date of admission: 10/26/20 07:10 Discharge Date: 10/27/20 Primary care physician: Doctor Billy MD Discharge provider: Alicja Lay MD Summary Hospital Course Date Patient Seen: 10/27/20 Time Patient Seen: 11:15 Diagnoses: Thirty-nine weeks gestation Advanced maternal age Pitocin induction of labor Spontaneous vaginal delivery Moderate meconium-stained amniotic fluid Hospital Course: Patient is a 40-year-old 4 para 3 who presented on October 26, 2020 for a scheduled induction of labor due to advanced maternal age. She was started on Pitocin. She received an epidural for pain management. Artificial rupture of membranes was performed. She progressed to complete dilation and had an unassisted vaginal delivery without pushing. No lacerations. Her course was unremarkable and she is discharged home on day # 1. Peripartum Data Delivery Method: Natural Vaginal Laceration Description: None Episiotomy description: None Procedures: Pitocin induction of labor Epidural analgesia Artificial rupture of membranes Spontaneous vaginal delivery complications: none 1: Gender: Female Disposition of : home Status at Discharge Cognitive/behavioral status at discharge: oriented Functional status at discharge: independent ambulation Overall status at discharge: patient is progressing back to baseline Time Spent with Patient Time attestation: Total time spent providing and/or coordinating discharge services: Time spent: Less than 30 minutes Objective Labs Result Diagrams: 10/27/20 06:34 Labs: Laboratory Results - last 24 hr 10/27/20 06:34 Hgb 11.8 L Hct 36.4 Exam Vital Signs (past 8 hours): - 10/27/20 11:50 10/27/20 13:51 Temperature 97.6 F 97.6 F Pulse Rate 88 Respiratory Rate 16 Blood Pressure 124/77 Narrative Exam Narrative: Generally: Patient is sitting up in bed, nursing , no acute distress Fundus: Firm at U -1 Extremities: Trace edema, negative Hom[place] Discharge Plan Discharge Plan Patient Disposition: Home Provider Discharge Comment: Call with fever, chills, or bleeding vaginally more than a pad in an hour Ibuprofen 600 mg every 6 hours as needed for cramping Tylenol 650 mg every 6 hours as needed Discharge orders & Medications Prescriptions: Continued aspirin 81 mg tablet,delayed release (DR/EC) 81 mg PO DAILY RF: 0 comb no.42-folic acid 1.4 mg tablet,chew,IR - DR,biphase 1 tab PO DAILY Qty: 90 RF: 3 hydrocortisone [Anusol-HC] 2.5 % cream with perineal applicator 1 applic [place] BID-QID PRN (Reason: hemorrhoids) Qty: 30 RF: 2 Follow up/Referrals: Alicja Lay MD [Physician] - 6 Weeks (Please follow up with Dr. Lay on December 22 at 2pm with a 1:45 check in. If you have any questions/concerns or need to reschedule please call .) Doctor Cervantes MD [Primary Care Provider] - Diet/Activity/Treatments Diet: Regular Activity: Nothing in the vagina and till 6 week appointment Skin/Wound/Dressing Care Report to your healthcare provider any signs of infection, such as:: chills, fever, increased pain and unusual drainage Visit Report/Discharge Packet Instructions: DI for Labor and Delivery, Vaginal Stand Alone Forms: Discharge: Care Discharge Data Primary Care Provider: Doctor Billy
== END 2020-10-27 14:44 | disposition home or self-care (01) | DRG 807 ==
PROVIDERS: Admitting Provider Obstetrics & Gynecology; Referring Provider Obstetrics & Gynecology; Visit Provider Obstetrics & Gynecology
DX: O69.81X0 Labor and delivery complicated by cord around neck, without compression, not applicable or unspecified (principal); Z37.0 Single live birth; O77.0 Labor and delivery complicated by meconium in amniotic fluid; Z3A.39 39 weeks gestation of pregnancy
CPT/HCPCS: 01967; 36415; 59050; 59400; 76815; 85014; 85018; 85025; 86850; 86900; 86901; G0379; J2590